=== PATIENT | female | born 1950 | race Caucasian/White ===

== ENCOUNTER 2017-03-11 10:07 | Emergency (ER) | payer OTHER ==
[~2017-03-11] VITALS: Ht 160 cm; Wt 61.1 kg
[~2017-03-11 10:07] MED LIST: TRAM50 PO; [UNRECOGNIZED DRUG - OTHER]
[2017-03-11 10:14] VITALS: BP 141/67; PULSE 81; RESP 16; TEMP 98.5; O2SAT 95
[2017-03-11] MEDS ORDERED: BENZ100 PO (10:54)
[2017-03-11] MEDS ORDERED: FLUT1SPR5 EACH NARE (10:54)
--- NOTE | 2017-03-11 10:55 | PD ---
HPI Chief Complaint: Cold / Flu Symptoms Time Seen by Provider: 10:21 Travel History International Travel<30 days: No Contact w/Intl Traveler<30days: No Traveled to known affect area: No History of Present Illness HPI 66-year-old female here for evaluation of nasal congestion and cough times one day. Patient reports exposure to multiple sick coworkers with mild URI-like symptoms. She denies fever, chills, chest pain, shortness of breath, abdominal pain, nausea vomiting or diarrhea. Severity is mild. She has not used any over -the-counter medications for symptom relief. PFSH Past Medical History Medical History: Denies Significant Hx Asthma: No Diabetes: No Diminished Hearing: No Tetanus Vaccination: < 5 Years Influenza Vaccination: No ?: Not Menopausal: Yes Past Surgical History Tonsillectomy: Yes Social History Alcohol Use: No Tobacco Use: Yes (2PPD) Substance Use: No Allergies-Medications (Allergen,Severity, Reaction): Coded Allergies: No Known Allergies (Verified Allergy, Mild, 03/11/17) Reported Meds & Prescriptions Reported Meds & Active Scripts Active No Active Prescriptions or Reported Medications Review of Systems Except as stated in HPI: all other systems reviewed are Neg General / Constitutional: No: Fever HENT: No: Headaches Cardiovascular: No: Chest Pain or Discomfort Respiratory: Positive: Cough, No: Shortness of Breath Gastrointestinal: No: Abdominal Pain Physical Exam Narrative GENERAL: Well-nourished, well-developed patient. SKIN: Focused skin assessment warm/dry. HEAD: Normocephalic. EYES: No scleral icterus. No injection or drainage. HEAD: Atraumatic. Normocephalic. EYES: PERRL, EOMI, no discharge or injection. No scleral icterus. EARS: Bilateral tympanic membranes without erythema, dullness or perforation. NOSE: Nasal turbinates appear normal without nasal blood, purulent drainage or septal hematoma. Clear nasal discharge noted THROAT: Mucosa pink and moist. No erythema or exudates. No tonsillar hypertrophy or exudate NECK: Supple, trachea midline. No JVD or lymphadenopathy. CARDIOVASCULAR: Regular rate and rhythm without murmurs, gallops, or rubs. RESPIRATORY: Breath sounds equal bilaterally. No accessory muscle use. GASTROINTESTINAL: Abdomen soft, non-tender, nondistended. Data Data Last Documented VS Vital Signs Date Time Temp Pulse Resp B/P (MAP) Pulse Ox O2 Delivery O2 Flow Rate FiO2 03/11/17 10:24 16 03/11/17 10:14 98.5 81 141/67 (91) 95 MDM Medical Decision Making Medical Screen Exam Complete: Yes Emergency Medical Condition: Yes Differential Diagnosis URI, influenza, bronchitis, pneumonia Narrative Course 66-year-old female here with mild URI like symptoms. Her chief complaint is nasal congestion and a mild nonproductive cough. Her vital signs are stable. Her physical exam is essentially benign. She appears to have a viral URI. Diagnosis Primary Impression: URI (upper respiratory infection) Qualified Codes: J06.9 - Acute upper respiratory infection, unspecified Referrals: Primary Care Physician Departure Forms: Tests/Procedures, Work Release Enter return to work date: Mar 12, 2017 Additional Instructions: Take medication as prescribed. Take [id number] Motrin 600-800 mg every 6-8 hours as needed for pain. Rest and stay well hydrated. Follow-up with her primary doctor. Scripts Benzonatate (Tessalon Perles) 100 Mg Cap 200 MG PO TID Y for COUGH for 5 Days, CAP 0 Refills Prov: Kary Amaya 03/11/17 Fluticasone Nasal [place] (Flonase Nasal [place]) 50 Mcg/Act [place] 100 MCG EACH NARE BID for Allergies, #1 BOTTLE 0 Refills Prov: Kary Amaya 03/11/17 Disposition: 01 DISCHARGE HOME Condition: Stable Kary Amaya Mar 11, 2017 10:55
== END 2017-03-11 11:19 | disposition home or self-care (01) ==
LOC: PHED 10:07
DX: J06.9 Acute upper respiratory infection, unspecified (principal); F17.210 Nicotine dependence, cigarettes, uncomplicated
CPT/HCPCS: 99283

== ENCOUNTER 2017-07-16 12:37 | Emergency (ER) | payer MEDICARE, OTHER ==
[~2017-07-16] VITALS: Ht 160 cm; Wt 66.0 kg
[~2017-07-16 12:37] MED LIST changes: +BENZ100 PO; +FLUT1SPR5 EACH NARE; -TRAM50 PO; -[UNRECOGNIZED DRUG - OTHER]
[2017-07-16 12:40] VITALS: BP 123/63; PULSE 83; RESP 16; TEMP 97.4; O2SAT 98
[2017-07-16] MEDS ORDERED: VENTAER INH (14:31)
[2017-07-16] MEDS ORDERED: AZIT250T3 PO (14:31)
[2017-07-16] MEDS ORDERED: PRED20 PO (14:31)
[2017-07-16] MEDS ORDERED: BENZ100 PO (14:31)
--- NOTE | 2017-07-16 14:32 | PD ---
HPI Chief Complaint: Cold / Flu Symptoms Time Seen by Provider: 14:00 Travel History International Travel<30 days: No Contact w/Intl Traveler<30days: No Traveled to known affect area: No History of Present Illness HPI 67-year-old female here with productive cough times one week. She reports colored sputum. Symptoms began as nasal congestion, sore throat approximately 2 weeks ago. She has had similar symptoms in the past with bronchitis/ pneumonia. She denies chest pain or shortness of breath. Some severity is moderate. No aggravating or alleviating factors. PFSH Past Medical History Asthma: No COPD: Yes Diabetes: No Diminished Hearing: No Immunizations Current: Yes Tetanus Vaccination: Unknown Influenza Vaccination: No ?: Not Menopausal: Yes Past Surgical History Surgical History: No Previous Surgery Tonsillectomy: Yes Social History Alcohol Use: No Tobacco Use: Yes (1 PPD) Substance Use: No Allergies-Medications (Allergen,Severity, Reaction): Coded Allergies: No Known Allergies (Verified Allergy, Mild, 07/16/17) Reported Meds & Prescriptions Reported Meds & Active Scripts Active No Active Prescriptions or Reported Medications Review of Systems Except as stated in HPI: all other systems reviewed are Neg General / Constitutional: Positive: Fever Eyes: No: Visual changes HENT: Positive: Congestion, No: Headaches Cardiovascular: No: Chest Pain or Discomfort Respiratory: Positive: Cough, Wheezing Gastrointestinal: No: Abdominal Pain Genitourinary: No: Dysuria Musculoskeletal: No: Pain Skin: No Rash Physical Exam Narrative GENERAL: Alert and well-appearing 67-year-old female SKIN: Warm and dry. HEAD: Normocephalic. EYES: No injection or drainage. NECK: Supple CARDIOVASCULAR: Regular rate and rhythm. No murmur appreciated RESPIRATORY: Breath sounds equal bilaterally. No accessory muscle use. Scattered rhonchi. GASTROINTESTINAL: Abdomen soft, non-tender, nondistended. MUSCULOSKELETAL: No cyanosis, or edema. BACK: Nontender without obvious deformity. No CVA tenderness. Data Data Last Documented VS Vital Signs Date Time Temp Pulse Resp B/P (MAP) Pulse Ox O2 Delivery O2 Flow Rate FiO2 07/16/17 13:27 (83) 07/16/17 12:40 97.4 83 16 98 Room Air MDM Medical Decision Making Medical Screen Exam Complete: Yes Emergency Medical Condition: Yes Differential Diagnosis Pneumonia, bronchitis, influenza Narrative Course This is a 67-year-old female here with bronchitis. She is nontoxic appearing. Her vital signs are stable. She has a rhonchorous cough. She will be treated with azithromycin, prednisone, albuterol, Tessalon Perles. Term precautions were discussed. Patient verbalizes understanding and agrees to plan Diagnosis Primary Impression: Bronchitis Referrals: Primary Care Physician Scripts Benzonatate (Tessalon Perles) 100 Mg Cap 200 MG PO TID Y for COUGH, #12 CAP 0 Refills Prov: Kary Amaya 07/16/17 Albuterol 18 GM Inh (Ventolin Hfa 18 GM Inh) 90 Mcg/Act Aer 2 PUFF INH Q4-6H Y for SHORTNESS OF BREATH, #1 INHALER 0 Refills Prov: Kary Amaya 07/16/17 Prednisone (Prednisone) 20 Mg Tab 40 MG PO DAILY, #10 TAB 0 Refills Take 40 mg (2 tablets) daily for 5 days Prov: Kary Amaya 07/16/17 Azithromycin (Azithromycin) 250 Mg Tab 250 MG PO DIRECTED for Infection, #6 TAB 0 Refills Take 2 tabs (500 mg) on day 1 then 1 tab daily x 4 days. Prov: Kary Amaya 07/16/17 Disposition: 01 DISCHARGE HOME Condition: Stable Kary Amaya Jul 16, 2017 14:32
== END 2017-07-16 14:42 | disposition home or self-care (01) ==
LOC: PHED 12:37 → PHEFT 14:42
DX: J44.9 Chronic obstructive pulmonary disease, unspecified (principal); F17.200 Nicotine dependence, unspecified, uncomplicated
CPT/HCPCS: 99283